=== PATIENT | male | born 1945 | race Caucasian/White ===

== ENCOUNTER 2017-01-21 00:02 | Emergency (ER) | payer OTHER ==
[~2017-01-21 00:02] MED LIST: ASPIRIN ADULT L81 M1 PO; MAXZIDE-25 PO; METOPROLOL SUCC25 MG PO; MULTIVITAMIN1 TAB PO
--- NOTE | 2017-01-21 02:51 | ED NURSING NOTES ---
Clinical Report - Nurses [address] [address] [place] [address] 01/21/2017 0:02 [id number] Triage time 00:48 Jan 21 2017. Chief Complaint: DIZZINESS and (pt reports laying in bed with sudden onset of "dizziness" about 2100). Alert. No acute distress. SEPSIS SCREEN: Sepsis Screen: negative. Negative (no infection suspected/documented). PARAMJIT COMA SCORE: [place] Coma Scale: 15- eyes open spontaneously (4); best verbal response- oriented x 4 (5); best motor response- obeys commands (6). --00:57 Amrit Wang R.N. 00:48 01/21/17. BP: 135/84. HR: 84. RR: 18. O2 saturation: 98%. Temp: 98.3 F. Pain level now: 0/10. --00:57 Amrit Wang R.N. Weight: 122.4 kg stated. Height/Length: 74 inches Per Patient. BMI: 34.7. --00:51 Amrit Wang R.N. Medications Aspirin Oral (Tablet 81 mg) 1 tablet, daily. --00:52 Amrit Wang R.N. Metoprolol Succinate ER Oral 25 mg, daily (take one tablet daily). --00:52 Amrit Wang R.N. Triamterene-HCTZ Oral (Tablet 37.5-25 mg) 1 tablet, daily. --00:53 Amrit Wang R.N. Allergies Ciprofloxacin. --00:53 Amrit Wang R.N. Sulfamethoxazole. --00:53 Amrit Wang R.N. Medication/allergy information source: the patient. --00:57 Amrit Wang R.N. History Arrived by private vehicle. Historian: patient. This is a new problem and onset was abrupt. (2100 this evening). Treatment CERTIFIED REGISTERED DENTAL ASSISTANT: None. PAST MEDICAL HX: Immunizations: up-to-date. SOCIAL HX: Never smoker. Alcohol use; consumes beer occasionally. No infectious disease exposure. ABUSE ASSESSMENT: No report of abuse. SELF HARM ASSESSMENT: A self harm assessment was performed. The patient answered "no" to the question "Have you recently felt down, depressed, or hopeless?", "Have you noticed less interest or pleasure in doing things?", "Do you have thoughts of harming or killing yourself?", "Are you here because you tried to hurt yourself?", "Have you ever tried to hurt yourself before today?", "Have you recently had thoughts about harming or killing others?" and "Do you have any dangerous items in your possession?". FALL RISK ASSESSMENT: Fall risk assessment completed. No fall risk identified. NUTRITIONAL RISK ASSESSMENT: The nutritional risk assessment revealed no deficiencies. LEARNING NEEDS ASSESSMENT: The learning needs assessment revealed no barriers. FUNCTIONAL ASSESSMENT: Functional assessment performed: hard of hearing in both ears and uses a hearing aid in both ears- this hearing impairment is an ongoing problem. SKIN INTEGRITY ASSESSMENT: Skin integrity risk assessment completed. No skin integrity risk identified. --00:57 Amrit Wang R.N. PROBLEMS: Colon Cancer. Chest Pain. Unstable Angina. Contusion. Allergic Reaction. Hypertension. Anemia. Enlarged colon. --00:54 Amrit Wang R.N. ADDITIONAL SURGERIES: Cholecystectomy. Hernia Repair. --00:54 Amrit Wang RPascualN. Interventions ID and allergy band on patient. --00:57 Amrit Wang RPascualN. PHYSICAL ASSESSMENT Ambulatory to room. Patient gowned. GENERAL / NEURO / PSYCH: Oriented X 4. Alert. Speech within normal limits. HEENT: Pupils equal, round and reactive to light. RESPIRATORY: Breath sounds within normal limits. Respirations not labored. CVS: Capillary refill less than 2 seconds. GI / : Abdomen soft and nontender. SKIN: Skin is warm and dry. --00:58 Amrit Wang R.N. NURSING PROGRESS NOTES nurse monitoring, pulse oximeter and NIBP monitor placed on patient; compliance monitor- Lead II and V5; monitor alarms on. Patient gowned. Head of bed elevated. Reassurance given. Two patient identifiers checked. Call light placed in reach. Side rails up x 1. Bed placed in lowest position. Brakes of bed on. --00:59 Amrit Wang R.N. 00:59 01/21/2017 Site #1 started via IV in the right wrist with an 20g angiocath; one attempt. Blood drawn: rainbow set. Labeled in the presence of the patient and sent to the lab. Saline lock flushed with 10 mL saline (placed by Damien BEE). --00:59 Amrit Wang R.N. 00:49. EKG was performed by a tech and shown to the ED physician. --01:00 Sahra Lange ER Tech1 01:11 01/21/2017 Started bag #1 500 mL IV Fluids IV NS (Saline); at 500 mL/hr via site #1 via IV pump. Allergies verified and confirmed 5 rights. IV patency established. IV site checked: no pain, redness, or swelling. IV flushed thoroughly pre- and post-medication administration. --01:11 Amrit Wang R.N. 01:39 01/21/2017 Meclizine PO Tablets 50 mg given. Allergies verified, confirmed 5 rights and sedative warning given to the patient. --01:39 Damien Reza R.N. 01:39 01/21/2017 Zofran ODT (Ondansetron) PO Oral Disintegrating Tablets 4 mg given. Allergies verified and confirmed 5 rights. --01:39 Damien Reza R.N. 01:39 01/21/17. BP: 126/69 (regular adult cuff) taken on the left arm, via an automated monitor, while lying. HR: 92 (irregular and normal rate). RR: 20 (regular, unlabored and normal). O2 saturation: 96% on room air. --01:39 Damien Reza R.N. The patient is calm and resting quietly. GENERAL / NEURO / PSYCH: Patient is calm and cooperative. Affect appears normal. Alert. Oriented X 4. RESPIRATORY: No respiratory distress. SKIN: Skin is warm and dry. --01:39 Damien Reza R.N. 02:15 01/21/2017 IV Fluids IV NS via IV site #1 Rate Changed: bag #1 decreased to 250 mL/hr via IV pump. IV patency established. IV site checked: no pain, redness, or swelling. IV flushed thoroughly. Confirmed 5 Rights. --02:15 Shania Wheeler 02:20 01/21/17. BP: 126/73 (regular adult cuff) taken on the left arm, via an automated monitor, while lying. HR: 71 (irregular and normal rate). RR: 16 (regular, unlabored and normal). O2 saturation: 100% on room air. --02:20 Damien Reza R.N. Cardiac rhythm: sinus arrhythmia; PVCs- bigeminy. --02:20 Damien Reza R.N. 02:59 01/21/2017 IV Fluids IV NS Discontinued: bag #1 discontinued upon discharge. Total amount infused: 700 mL. IV patency established. IV site checked: no pain, redness, or swelling. IV flushed thoroughly. --02:59 Damien Reza R.N. 02:59 01/21/2017 Meclizine PO Response: no adverse reaction symptoms have improved the patient feels better. --02:59 Damien Reza R.N. 02:59 01/21/2017 Zofran ODT PO Response: no adverse reaction symptoms have improved the patient feels better. --02:59 Damien Reza R.N. DISPOSITION / DISCHARGE Departure time: :59. Condition at departure: stable. The goals identified in the patient's plan of care were met. No learning barriers present. Discharge instructions provided and reviewed with the patient. Reviewed medication(s) side effects, precautions, dosing and course information. Prescription(s) given to the patient. Patient verbalized understanding. Written instructions provided in [place]. ( Drew verbalizes understanding of all d/c instructions including need to f/u with PCP. He has no questions and voices no concerns at this time.). The patient was discharged by the physician. He was discharged home and unaccompanied at time of discharge. He left the Emergency Department ambulatory and via private vehicle. Patient driving. PARAMJIT COMA SCORE: Paramjit Coma Scale: 15- eyes open spontaneously (4); best verbal response- oriented x 4 (5); best motor response- obeys commands (6). --02:59 Damien Reza R.N. 02:57 01/21/17. BP: 126/74 (regular adult cuff) taken on the left arm, via an automated monitor, while lying. HR: 70 (irregular and normal rate). RR: 18 (regular, unlabored and normal). O2 saturation: 100% on room air. Temp: 98.3 F (oral). Pain level now: 0/10. --02:59 Damien Reza R.N. Locked/Released at 01/21/2017 3:00 by Damien Reza R.N.
--- NOTE | 2017-01-21 02:51 | ED NURSING NOTES ---
Clinical Report - Nurses [place] [address] [place] [address] 01/21/2017 0:02 [id number] Triage time 00:48 Jan 21 2017. Chief Complaint: DIZZINESS and (pt reports laying in bed with sudden onset of "dizziness" about 2100). Alert. No acute distress. SEPSIS SCREEN: Sepsis Screen: negative. Negative (no infection suspected/documented). PARAMJIT COMA SCORE: [place] Coma Scale: 15- eyes open spontaneously (4); best verbal response- oriented x 4 (5); best motor response- obeys commands (6). --00:57 Amrit Wang R.N. 00:48 01/21/17. BP: 135/84. HR: 84. RR: 18. O2 saturation: 98%. Temp: 98.3 F. Pain level now: 0/10. --00:57 Amrit Wang R.N. Weight: 122.4 kg stated. Height/Length: 74 inches Per Patient. BMI: 34.7. --00:51 Amrit Wang R.N. Medications Aspirin Oral (Tablet 81 mg) 1 tablet, daily. --00:52 Amrit Wang R.N. Metoprolol Succinate ER Oral 25 mg, daily (take one tablet daily). --00:52 Amrit Wang R.N. Triamterene-HCTZ Oral (Tablet 37.5-25 mg) 1 tablet, daily. --00:53 Amrit Wang R.N. Allergies Ciprofloxacin. --00:53 Amrit Wang R.N. Sulfamethoxazole. --00:53 Amrit Wang R.N. Medication/allergy information source: the patient. --00:57 Amrit Wang R.N. History Arrived by private vehicle. Historian: patient. This is a new problem and onset was abrupt. (2100 this evening). Treatment MEASUREMENT TECHNICIAN: None. PAST MEDICAL HX: Immunizations: up-to-date. SOCIAL HX: Never smoker. Alcohol use; consumes beer occasionally. No infectious disease exposure. ABUSE ASSESSMENT: No report of abuse. SELF HARM ASSESSMENT: A self harm assessment was performed. The patient answered "no" to the question "Have you recently felt down, depressed, or hopeless?", "Have you noticed less interest or pleasure in doing things?", "Do you have thoughts of harming or killing yourself?", "Are you here because you tried to hurt yourself?", "Have you ever tried to hurt yourself before today?", "Have you recently had thoughts about harming or killing others?" and "Do you have any dangerous items in your possession?". FALL RISK ASSESSMENT: Fall risk assessment completed. No fall risk identified. NUTRITIONAL RISK ASSESSMENT: The nutritional risk assessment revealed no deficiencies. LEARNING NEEDS ASSESSMENT: The learning needs assessment revealed no barriers. FUNCTIONAL ASSESSMENT: Functional assessment performed: hard of hearing in both ears and uses a hearing aid in both ears- this hearing impairment is an ongoing problem. SKIN INTEGRITY ASSESSMENT: Skin integrity risk assessment completed. No skin integrity risk identified. --00:57 Amrit Wang R.N. PROBLEMS: Colon Cancer. Chest Pain. Unstable Angina. Contusion. Allergic Reaction. Hypertension. Anemia. Enlarged colon. --00:54 Amrit Wang R.N. ADDITIONAL SURGERIES: Cholecystectomy. Hernia Repair. --00:54 Amrit Wang RPascualN. Interventions ID and allergy band on patient. --00:57 Amrit Wang RPascualN. PHYSICAL ASSESSMENT Ambulatory to room. Patient gowned. GENERAL / NEURO / PSYCH: Oriented X 4. Alert. Speech within normal limits. HEENT: Pupils equal, round and reactive to light. RESPIRATORY: Breath sounds within normal limits. Respirations not labored. CVS: Capillary refill less than 2 seconds. GI / : Abdomen soft and nontender. SKIN: Skin is warm and dry. --00:58 Amrit Wang R.N. NURSING PROGRESS NOTES eyelet row marker, pulse oximeter and NIBP monitor placed on patient; boring machine operator horizontal- Lead II and V5; monitor alarms on. Patient gowned. Head of bed elevated. Reassurance given. Two patient identifiers checked. Call light placed in reach. Side rails up x 1. Bed placed in lowest position. Brakes of bed on. --00:59 Amrit Wang R.N. 00:59 01/21/2017 Site #1 started via IV in the right wrist with an 20g angiocath; one attempt. Blood drawn: rainbow set. Labeled in the presence of the patient and sent to the lab. Saline lock flushed with 10 mL saline (placed by Damien BEE). --00:59 Amrit Wang R.N. 00:49. EKG was performed by a tech and shown to the ED physician. --01:00 Sahra Lange ER Tech1 01:11 01/21/2017 Started bag #1 500 mL IV Fluids IV NS (Saline); at 500 mL/hr via site #1 via IV pump. Allergies verified and confirmed 5 rights. IV patency established. IV site checked: no pain, redness, or swelling. IV flushed thoroughly pre- and post-medication administration. --01:11 Amrit Wang R.N. 01:39 01/21/2017 Meclizine PO Tablets 50 mg given. Allergies verified, confirmed 5 rights and sedative warning given to the patient. --01:39 Damien Reza R.N. 01:39 01/21/2017 Zofran ODT (Ondansetron) PO Oral Disintegrating Tablets 4 mg given. Allergies verified and confirmed 5 rights. --01:39 Damien Reza R.N. 01:39 01/21/17. BP: 126/69 (regular adult cuff) taken on the left arm, via an automated monitor, while lying. HR: 92 (irregular and normal rate). RR: 20 (regular, unlabored and normal). O2 saturation: 96% on room air. --01:39 Damien Reza R.N. The patient is calm and resting quietly. GENERAL / NEURO / PSYCH: Patient is calm and cooperative. Affect appears normal. Alert. Oriented X 4. RESPIRATORY: No respiratory distress. SKIN: Skin is warm and dry. --01:39 Damien Reza R.N. 02:15 01/21/2017 IV Fluids IV NS via IV site #1 Rate Changed: bag #1 decreased to 250 mL/hr via IV pump. IV patency established. IV site checked: no pain, redness, or swelling. IV flushed thoroughly. Confirmed 5 Rights. --02:15 Shania Wheeler 02:20 01/21/17. BP: 126/73 (regular adult cuff) taken on the left arm, via an automated monitor, while lying. HR: 71 (irregular and normal rate). RR: 16 (regular, unlabored and normal). O2 saturation: 100% on room air. --02:20 Damien Reza R.N. Cardiac rhythm: sinus arrhythmia; PVCs- bigeminy. --02:20 Damien Reza R.N. 02:59 01/21/2017 IV Fluids IV NS Discontinued: bag #1 discontinued upon discharge. Total amount infused: 700 mL. IV patency established. IV site checked: no pain, redness, or swelling. IV flushed thoroughly. --02:59 Damien Reza R.N. 02:59 01/21/2017 Meclizine PO Response: no adverse reaction symptoms have improved the patient feels better. --02:59 Damien Reza R.N. 02:59 01/21/2017 Zofran ODT PO Response: no adverse reaction symptoms have improved the patient feels better. --02:59 Damien Reza R.N. DISPOSITION / DISCHARGE Departure time: :59. Condition at departure: stable. The goals identified in the patient's plan of care were met. No learning barriers present. Discharge instructions provided and reviewed with the patient. Reviewed medication(s) side effects, precautions, dosing and course information. Prescription(s) given to the patient. Patient verbalized understanding. Written instructions provided in [place]. ( Drew verbalizes understanding of all d/c instructions including need to f/u with PCP. He has no questions and voices no concerns at this time.). The patient was discharged by the physician. He was discharged home and unaccompanied at time of discharge. He left the Emergency Department ambulatory and via private vehicle. Patient driving. PARAMJIT COMA SCORE: Paramjit Coma Scale: 15- eyes open spontaneously (4); best verbal response- oriented x 4 (5); best motor response- obeys commands (6). --02:59 Damien Reza R.N. 02:57 01/21/17. BP: 126/74 (regular adult cuff) taken on the left arm, via an automated monitor, while lying. HR: 70 (irregular and normal rate). RR: 18 (regular, unlabored and normal). O2 saturation: 100% on room air. Temp: 98.3 F (oral). Pain level now: 0/10. --02:59 Damien Reza R.N. Locked/Released at 01/21/2017 3:00 by Damien Reza R.N.
--- NOTE | 2017-01-21 02:51 | ED CLINICAL REPORT ---
Clinical Report - Physicians/Mid Levels [facility] [address] [place] [address] 01/21/2017 0:02 Patient: DREW NEVILLE Time Seen: 00:51. Arrived- By private vehicle. Historian- patient. HISTORY OF PRESENT ILLNESS Chief Complaint: DIZZINESS. Severity described as moderate at its maximum. When seen in the E.D., it was almost gone. Modifying factors- worsened by turning head and changing position. Relieved by not moving and quiet room. This started today and is still present. It was gradual in onset and has been waxing/waning. Described as a sense of rotation and movement and feeling off balance. Not described as feeling light-headed, faint or weak all over or a sense of confusion. The patient has had hearing loss. No nausea, vomiting, tinnitus or ear pain. Similar symptoms previously: Milder. Recent medical care: Not recently seen/assessed. REVIEW OF SYSTEMS No headache, double vision, weakness, fainting episodes or head injury. No chest pain, palpitations, black stools, abnormal vaginal bleeding or numbness. No bloody stools, fever, sore throat, cough or difficulty breathing. No abdominal pain, diarrhea, difficulty with urination or skin rash. No difficulty walking. The patient has had nasal congestion and a runny nose. States that he is "just getting over a cold" - with runny nose and congestion. All systems otherwise negative, except as recorded above. PAST HISTORY ( Rib Fracture. Fall. Frequent PVC's - has had cardiology w/u for this Contusion. Allergic Reaction. Hypertension. Anemia. "Enlarged colon" - felt to be "colon cancer" Chronic hearing loss Surgeries: Cholecystectomy. Hernia Repai). SOCIAL HISTORY Never smoker. Occasional alcohol use. No drug use. Is a local resident. ADDITIONAL NOTES The nursing notes have been reviewed. PHYSICAL EXAM Vital Signs: 01/21/2017 00:48 BP: 135/84. HR: 84. RR: 18. O2 saturation: 98%. Temp: 98.3 F. Pain level now: 0/10. Appearance: Alert. Anxious. Patient in mild distress. Odor of alcohol is not present. Speech is not slurred. Eyes: Pupils equal, round and reactive to light. No nystagmus. Extraocular movements normal. ENT: Normal ENT inspection. TM's normal. Moist mucous membranes. Pharynx normal. Neck: Normal inspection. Neck supple. No carotid bruit. CVS: Normal heart rate and rhythm. Heart sounds normal. Pulses normal. Respiratory: No respiratory distress. Breath sounds normal. Abdomen: Soft and nontender. No organomegaly. Back: Normal inspection. Skin: Skin warm and dry. Normal skin color. No rash. Normal skin turgor. Extremities: Extremities exhibit normal ROM. No lower extremity edema. Neuro: Alert. Oriented X 3. Mood/affect normal. Speech normal. Cranial nerves normal (as tested). No cerebellar findings. No motor deficit. No sensory deficit. Reflexes normal. (Neg [place]). LABS, X-RAYS, AND EKG EKG: EKG time: (00:49). Normal sinus rhythm. Rate: 95. Frequent unifocal ectopic beats (bigeminey). Normal P waves. Normal VERITO. Wide QRS- intraventricular conduction delay. Non-specific ST segment / T wave abnormalities. The study has been interpreted contemporaneously by me. The EKG appears to be a good tracing. Rhythm Strip #1: Normal sinus rhythm. Regular rhythm. Narrow QRS complexes. Frequent unifocal premature ventricular contractions (bigeminey). Non-specific ST segment / T-wave abnormalities. Laboratory Tests: UA-Culture if indicated: (RENZO: 01/21/2017 02:25) ( MsgRcvd 01/21/2017 02:45) Final results Test Result Flag Units (Reference) URINE COLOR YELLOW URINE APPEARANCE CLEAR URINE GLUCOSE NEGATIVE (NEGATIVE) URINE BILIRUBIN NEGATIVE (NEGATIVE) URINE KETONE NEGATIVE (NEGATIVE) URINE SPECIFIC GRAVITY 1.010 (1.010-1.030) URINE PH 5.5 (5.0-8.0) URINE PROTEIN NEGATIVE (NEGATIVE) URINE UROBILINOGEN 0.2 EU/dL (0.2-1.0) URINE NITRITE NEGATIVE (NEGATIVE) URINE BLOOD NEGATIVE (NEGATIVE) URINE LEUK ESTERASE NEGATIVE (NEGATIVE) URINE RBC RARE rbc/hpf (0-1) URINE WBC NONE SEEN wbc/hpf (0-1) URINE EPITHELIAL CELLS NONE SEEN EPI/hpf (0-5) URINE BACTERIA NONE SEEN (NONE SEEN) URINE COMMENT CULT NOT INDICATED URINE CULTURES ARE SET-UP BASED ON THE FOLLOWING CRITERIA:POSITIVE NITRITEPOSITIVE LEUKOCYTE ESTERASEGREATER THAN 10 WHITE BLOOD CELLSMODERATE (2+) OR GREATER BACTERIA CBC w Diff: (RENZO: 01/21/2017 01:00) ( KsgRcvd 01/21/2017 01:28) Final results Test Result Flag Units (Reference) WHITE BLOOD COUNT 6.9 K/uL (4.5-11.5) RED BLOOD COUNT 4.52 M/uL (4.50-5.90) HEMOGLOBIN 13.0 L gm/dL (13.5-17.5) HEMATOCRIT 38.5 L % (41.0-53.0) MEAN CELL VOLUME 85 fL (80-100) MEAN CORPUSCULAR HGB 29 pg (26-34) MEAN CORPUSCULAR HGB CONC 34 g/dL (31-37) RED CELL DISTRIBUTION WIDTH 13.8 % (11.6-14.8) PLATELET COUNT 172 K/uL (150-400) NEUTROPHIL % 54.0 % (50-75) LYMPH % 30.8 % (25-40) MONO % 8.8 % (3-14) EOSINOPHIL % 5.8 H % (0-4) BASOPHIL % 0.6 % (0-2) PT with INR: (RENZO: 01/21/2017 01:00) ( MsgRcvd 01/21/2017 01:28) Final results Test Result Flag Units (Reference) INR 1.0 (0.8-1.2) Low Intensity Therapy: INR 1.5-2.0 PT range 18.5-23.1Mod.Intensity Therapy: INR 2.0-3.0 PT range 23.1-31.5High Intensity Therapy: INR 2.5-3.5 PT range 27.4-35.5High Intensity Therapy 2: INR 3.0-4.0 PT range 31.5-39.3 D-DIMER QUANTITATIVE 0.63 H ug/mLFEU (0.27-0.52) The primary value of this quantitative assay relates toits negative predictive value (i.e. exclusion) of pulmonaryembolism/deep vein thrombosis/DIC.Elevated levels of d-dimer may also occur with:, age, cancer, inflammation, liver disease,post-op, infection, hematoma, coronary disease, peripheralarteriopathy, bleeding disorders and thrombolytic treatment.Results should be correlated with other clinical andradiological data.Testing Methodology: Latex Immunoassay BNP: (RENZO: 01/21/2017 01:00) ( [facility] 01/21/2017 02:04) Final results Test Result Flag Units (Reference) B-TYPE NATRIURETIC PEPTIDE 99.3 pg/ml (5-100) Amylase: (RENZO: 01/21/2017 01:00) ( [facility] 01/21/2017 01:54) Final results Test Result Flag Units (Reference) AMYLASE 43 U/L (25-115) THYROID STIMULATING HORMONE 4.687 H uIU/mL (0.30-3.74) CHEM 13 PANEL: (RENZO: 01/21/2017 01:00) ( [facility] 01/21/2017 01:53) Final results Test Result Flag Units (Reference) GLUCOSE 115 H mg/dL (70-110) BUN 23 H mg/dL (7-18) CREATININE 1.0 mg/dL (0.6-1.3) Estimated GFR >60 mL/min Estimated GFR- >60 mL/min Note: Persistent reduction over 3 months in eGFR<60 mL/min/1.73 m2 defines CKD. Patients with eGFR values>=60 mL/min/1.73 m2 may also have CKD if evidence ofpersistent proteinuria. Additional information may be foundat www.kidney.org. SODIUM 144 mmol/L (136-145) POTASSIUM 4.1 mmol/L (3.5-5.1) CHLORIDE 107 mmol/L (98-107) CARBON DIOXIDE 25 mmol/L (21-32) CALCIUM 8.9 mg/dL (8.5-10.1) TOTAL PROTEIN 7.6 g/dL (6.4-8.2) ALBUMIN 3.5 g/dL (3.3-5.0) BILIRUBIN, TOTAL 0.4 mg/dL (0.0-1.0) ALKALINE PHOSPHATASE 92 U/L (46-116) AST (SGOT) 29 U/L (15-37) ALT (SGPT) 29 U/L (12-78) CPK 235 U/L (24-260) MAGNESIUM 2.0 mg/dL (1.8-2.4) TROPONIN I <0.05 ng/mL (0.00-1.5) TROPONIN REFERENCE RANGE:<0.1 NEGATIVE0.1-1.5 INDETERMINANT>1.5 POSITIVE . Pulse Oximetry: 01/21/2017 00:48 O2 saturation: 98%. (FIO2 - room air). Interpretation: normal. PROGRESS AND PROCEDURES Course of Care: Normal Saline 1 liter IVPB given. Meclizine 50 mg PO given. Most c/w peripheral vertigo secondary to viral URI. Chronic frequent PVC's Patient is stable. The patient's symptoms are now gone. Physical exam findings are improved. Patient/family counseled. Old ED records reviewed. Disposition: Discharged. Condition: stable and improved. CLINICAL IMPRESSION Acute vertigo of peripheral origin: labrynthitis. Acute viral rhinitis. Acquired hypothyroidism. Frequent PVC's with bigeminy. INSTRUCTIONS Drink plenty of fluids. Warnings: Further evaluation is necessary in order to recheck abnormal lab, obtain test results, conduct further tests and assess the possibility of serious illness. It is very important to follow up with a physician. SEDATIVE MEDICATION: You were given sedative medication during your visit. Do not drive or operate dangerous machinery. GENERAL WARNINGS: Return or contact your physician immediately if your condition worsens or changes unexpectedly, if not improving as expected, or if other problems arise. Prescription Medications: Antivert 25mg: Take 1 tablet orally every 8 hours as needed for dizziness. Dispense thirty (30). No refills. Substitution is permissible. Follow-up with: Mk Faria MD, [facility], , [address] [facility], , [place], [id number] Follow up tomorrow. (Electronically signed by Az Bentley DO 01/21/2017 10:46)
--- NOTE | 2017-01-21 02:51 | ED ORDER SUMMARY ---
..... Patient: DREW NEVILLE OrderSheet [facility] VisitID: [id number] [address] [place] [address] 71y, M Registration Date/Time: 01/21/2017 ORDER SHEET Weight: 122.4 kg (stated) Allergies: Ciprofloxacin, Sulfamethoxazole GENERAL ORDERS: Chest 2V (dizzy) Urgent (00:54 01/21/2017 PHutchinson DO) (Ack 0:58 AMcQuoid ER Tech1) (1:11 RFay) Tax Accountant (Continuous) (00:54 01/21/2017 PHutchinson DO) (0:55 AMcQuoid ER Tech1) UA-Culture if indicated Urgent (00:54 01/21/2017 PHutchinson DO) (Ack 0:58 AMcQuoid ER Tech1) (2:51 JDeElena R.N.) Cardiac Panel Stat (00:54 01/21/2017 PHutchinson DO) (Ack 0:58 AMcQuoid ER Tech1) (1:00 JDeElena R.N.) BNP Urgent (00:54 01/21/2017 PHutchinson DO) (Ack 0:58 AMcQuoid ER Tech1) (1:00 JDeElena R.N.) D-Dimer Urgent (00:54 01/21/2017 PHutchinson DO) (Ack 0:58 AMcQuoid ER Tech1) (1:00 JDeElena R.N.) Amylase Urgent (00:54 01/21/2017 PHutchinson DO) (Ack 0:58 AMcQuoid ER Tech1) (1:00 JDeElena R.N.) PT with INR Urgent (00:54 01/21/2017 PHutchinson DO) (Ack 0:58 AMcQuoid ER Tech1) (1:00 JDeElena R.N.) TSH Urgent (00:54 01/21/2017 PHutchinson DO) (Ack 0:58 AMcQuoid ER Tech1) (1:00 JDeElena R.N.) Pulse oximeter (00:54 01/21/2017 PHutchinson DO) (0:55 AMcQuoid ER Tech1) EKG - ER Stat (00:54 01/21/2017 [facility]) (0:55 AMcQuoid ER Tech1) Vitals (00:54 01/21/2017 [facility]) (0:55 AMcQuoid ER Tech1) MEDICATION ORDERS: Meclizine PO 50 mg (NOW) (01:28 01/21/2017 [facility]) (Ack 1:35 JDeElenissac R.N.) (1:39 JDeElena R.N.) Zofran ODT PO 4 mg (NOW) (01:01/21/2017 [facility]) (Ack 1:35 JDeElena R.N.) (1:39 JDeElena R.N.) IV FLUIDS: IV NS : initial bolus 500 mL (1000 mL/hr), then 250 mL/hr for X2 (NOW) (00:54 01/21/2017 [facility]) (Ack 1:04 KPage-Peteychan R.N.) (1:11 KPage-Kuchan R.N.) ORDER SHEET NOTES: [Electronically signed by Damien Reza R.N. (03:00 01/21/2017)] [Electronically signed by Az Bentley DO (10:46 01/21/2017)] [Electronically locked/signed by Damien Reza R.N. (03:00 01/21/2017)]
--- NOTE | 2017-01-21 02:51 | ED ORDER SUMMARY ---
..... Patient: DREW NEVILLE OrderSheet [facility] VisitID: [id number] [address] [place] [address] 71y, M Registration Date/Time: 01/21/2017 ORDER SHEET Weight: 122.4 kg (stated) Allergies: Ciprofloxacin, Sulfamethoxazole GENERAL ORDERS: Chest 2V (dizzy) Urgent (00:54 01/21/2017 PHutchinson DO) (Ack 0:58 AMcQuoid ER Tech1) (1:11 RFay) Ballast Cleaning Machine Operator (Continuous) (00:54 01/21/2017 PHutchinson DO) (0:55 AMcQuoid ER Tech1) UA-Culture if indicated Urgent (00:54 01/21/2017 PHutchinson DO) (Ack 0:58 AMcQuoid ER Tech1) (2:51 JDeElena R.N.) Cardiac Panel Stat (00:54 01/21/2017 PHutchinson DO) (Ack 0:58 AMcQuoid ER Tech1) (1:00 JDeElena R.N.) BNP Urgent (00:54 01/21/2017 PHutchinson DO) (Ack 0:58 AMcQuoid ER Tech1) (1:00 JDeElena R.N.) D-Dimer Urgent (00:54 01/21/2017 PHutchinson DO) (Ack 0:58 AMcQuoid ER Tech1) (1:00 JDeElena R.N.) Amylase Urgent (00:54 01/21/2017 PHutchinson DO) (Ack 0:58 AMcQuoid ER Tech1) (1:00 JDeElena R.N.) PT with INR Urgent (00:54 01/21/2017 PHutchinson DO) (Ack 0:58 AMcQuoid ER Tech1) (1:00 JDeElena R.N.) TSH Urgent (00:54 01/21/2017 PHutchinson DO) (Ack 0:58 AMcQuoid ER Tech1) (1:00 JDeElena R.N.) Pulse oximeter (00:54 01/21/2017 PHutchinson DO) (0:55 AMcQuoid ER Tech1) EKG - ER Stat (00:54 01/21/2017 [facility]) (0:55 AMcQuoid ER Tech1) Vitals (00:54 01/21/2017 [facility]) (0:55 AMcQuoid ER Tech1) MEDICATION ORDERS: Meclizine PO 50 mg (NOW) (01:28 01/21/2017 [facility]) (Ack 1:35 JDeElenissac R.N.) (1:39 JDeElena R.N.) Zofran ODT PO 4 mg (NOW) (01:01/21/2017 [facility]) (Ack 1:35 JDeElena R.N.) (1:39 JDeElena R.N.) IV FLUIDS: IV NS : initial bolus 500 mL (1000 mL/hr), then 250 mL/hr for X2 (NOW) (00:54 01/21/2017 [facility]) (Ack 1:04 KPage-Peteychan R.N.) (1:11 KPage-Kuchan R.N.) ORDER SHEET NOTES: [Electronically signed by Damien Reza R.N. (03:00 01/21/2017)] [Electronically signed by Az Bentley DO (10:46 01/21/2017)] [Electronically locked/signed by Damien Reza R.N. (03:00 01/21/2017)]
--- NOTE | 2017-01-21 02:51 | ED CLINICAL REPORT ---
Clinical Report - Physicians/Mid Levels [facility] [address] [place] [address] 01/21/2017 0:02 Patient: DREW NEVILLE Time Seen: 00:51. Arrived- By private vehicle. Historian- patient. HISTORY OF PRESENT ILLNESS Chief Complaint: DIZZINESS. Severity described as moderate at its maximum. When seen in the E.D., it was almost gone. Modifying factors- worsened by turning head and changing position. Relieved by not moving and quiet room. This started today and is still present. It was gradual in onset and has been waxing/waning. Described as a sense of rotation and movement and feeling off balance. Not described as feeling light-headed, faint or weak all over or a sense of confusion. The patient has had hearing loss. No nausea, vomiting, tinnitus or ear pain. Similar symptoms previously: Milder. Recent medical care: Not recently seen/assessed. REVIEW OF SYSTEMS No headache, double vision, weakness, fainting episodes or head injury. No chest pain, palpitations, black stools, abnormal vaginal bleeding or numbness. No bloody stools, fever, sore throat, cough or difficulty breathing. No abdominal pain, diarrhea, difficulty with urination or skin rash. No difficulty walking. The patient has had nasal congestion and a runny nose. States that he is "just getting over a cold" - with runny nose and congestion. All systems otherwise negative, except as recorded above. PAST HISTORY ( Rib Fracture. Fall. Frequent PVC's - has had cardiology w/u for this Contusion. Allergic Reaction. Hypertension. Anemia. "Enlarged colon" - felt to be "colon cancer" Chronic hearing loss Surgeries: Cholecystectomy. Hernia Repai). SOCIAL HISTORY Never smoker. Occasional alcohol use. No drug use. Is a local resident. ADDITIONAL NOTES The nursing notes have been reviewed. PHYSICAL EXAM Vital Signs: 01/21/2017 00:48 BP: 135/84. HR: 84. RR: 18. O2 saturation: 98%. Temp: 98.3 F. Pain level now: 0/10. Appearance: Alert. Anxious. Patient in mild distress. Odor of alcohol is not present. Speech is not slurred. Eyes: Pupils equal, round and reactive to light. No nystagmus. Extraocular movements normal. ENT: Normal ENT inspection. TM's normal. Moist mucous membranes. Pharynx normal. Neck: Normal inspection. Neck supple. No carotid bruit. CVS: Normal heart rate and rhythm. Heart sounds normal. Pulses normal. Respiratory: No respiratory distress. Breath sounds normal. Abdomen: Soft and nontender. No organomegaly. Back: Normal inspection. Skin: Skin warm and dry. Normal skin color. No rash. Normal skin turgor. Extremities: Extremities exhibit normal ROM. No lower extremity edema. Neuro: Alert. Oriented X 3. Mood/affect normal. Speech normal. Cranial nerves normal (as tested). No cerebellar findings. No motor deficit. No sensory deficit. Reflexes normal. (Neg Nylan-Barany). LABS, X-RAYS, AND EKG EKG: EKG time: (00:49). Normal sinus rhythm. Rate: 95. Frequent unifocal ectopic beats (bigeminey). Normal P waves. Normal VERITO. Wide QRS- intraventricular conduction delay. Non-specific ST segment / T wave abnormalities. The study has been interpreted contemporaneously by me. The EKG appears to be a good tracing. Rhythm Strip #1: Normal sinus rhythm. Regular rhythm. Narrow QRS complexes. Frequent unifocal premature ventricular contractions (bigeminey). Non-specific ST segment / T-wave abnormalities. Laboratory Tests: UA-Culture if indicated: (RENZO: 01/21/2017 02:25) ( MsgRcvd 01/21/2017 02:45) Final results Test Result Flag Units (Reference) URINE COLOR YELLOW URINE APPEARANCE CLEAR URINE GLUCOSE NEGATIVE (NEGATIVE) URINE BILIRUBIN NEGATIVE (NEGATIVE) URINE KETONE NEGATIVE (NEGATIVE) URINE SPECIFIC GRAVITY 1.010 (1.010-1.030) URINE PH 5.5 (5.0-8.0) URINE PROTEIN NEGATIVE (NEGATIVE) URINE UROBILINOGEN 0.2 EU/dL (0.2-1.0) URINE NITRITE NEGATIVE (NEGATIVE) URINE BLOOD NEGATIVE (NEGATIVE) URINE LEUK ESTERASE NEGATIVE (NEGATIVE) URINE RBC RARE rbc/hpf (0-1) URINE WBC NONE SEEN wbc/hpf (0-1) URINE EPITHELIAL CELLS NONE SEEN EPI/hpf (0-5) URINE BACTERIA NONE SEEN (NONE SEEN) URINE COMMENT CULT NOT INDICATED URINE CULTURES ARE SET-UP BASED ON THE FOLLOWING CRITERIA:POSITIVE NITRITEPOSITIVE LEUKOCYTE ESTERASEGREATER THAN 10 WHITE BLOOD CELLSMODERATE (2+) OR GREATER BACTERIA CBC w Diff: (RENZO: 01/21/2017 01:00) ( CogRcvd 01/21/2017 01:28) Final results Test Result Flag Units (Reference) WHITE BLOOD COUNT 6.9 K/uL (4.5-11.5) RED BLOOD COUNT 4.52 M/uL (4.50-5.90) HEMOGLOBIN 13.0 L gm/dL (13.5-17.5) HEMATOCRIT 38.5 L % (41.0-53.0) MEAN CELL VOLUME 85 fL (80-100) MEAN CORPUSCULAR HGB 29 pg (26-34) MEAN CORPUSCULAR HGB CONC 34 g/dL (31-37) RED CELL DISTRIBUTION WIDTH 13.8 % (11.6-14.8) PLATELET COUNT 172 K/uL (150-400) NEUTROPHIL % 54.0 % (50-75) LYMPH % 30.8 % (25-40) MONO % 8.8 % (3-14) EOSINOPHIL % 5.8 H % (0-4) BASOPHIL % 0.6 % (0-2) PT with INR: (RENZO: 01/21/2017 01:00) ( MsgRcvd 01/21/2017 01:28) Final results Test Result Flag Units (Reference) INR 1.0 (0.8-1.2) Low Intensity Therapy: INR 1.5-2.0 PT range 18.5-23.1Mod.Intensity Therapy: INR 2.0-3.0 PT range 23.1-31.5High Intensity Therapy: INR 2.5-3.5 PT range 27.4-35.5High Intensity Therapy 2: INR 3.0-4.0 PT range 31.5-39.3 D-DIMER QUANTITATIVE 0.63 H ug/mLFEU (0.27-0.52) The primary value of this quantitative assay relates toits negative predictive value (i.e. exclusion) of pulmonaryembolism/deep vein thrombosis/DIC.Elevated levels of d-dimer may also occur with:, age, cancer, inflammation, liver disease,post-op, infection, hematoma, coronary disease, peripheralarteriopathy, bleeding disorders and thrombolytic treatment.Results should be correlated with other clinical andradiological data.Testing Methodology: Latex Immunoassay BNP: (RENZO: 01/21/2017 01:00) ( [facility] 01/21/2017 02:04) Final results Test Result Flag Units (Reference) B-TYPE NATRIURETIC PEPTIDE 99.3 pg/ml (5-100) Amylase: (RENZO: 01/21/2017 01:00) ( [facility] 01/21/2017 01:54) Final results Test Result Flag Units (Reference) AMYLASE 43 U/L (25-115) THYROID STIMULATING HORMONE 4.687 H uIU/mL (0.30-3.74) CHEM 13 PANEL: (RENZO: 01/21/2017 01:00) ( [facility] 01/21/2017 01:53) Final results Test Result Flag Units (Reference) GLUCOSE 115 H mg/dL (70-110) BUN 23 H mg/dL (7-18) CREATININE 1.0 mg/dL (0.6-1.3) Estimated GFR >60 mL/min Estimated GFR- >60 mL/min Note: Persistent reduction over 3 months in eGFR<60 mL/min/1.73 m2 defines CKD. Patients with eGFR values>=60 mL/min/1.73 m2 may also have CKD if evidence ofpersistent proteinuria. Additional information may be foundat www.kidney.org. SODIUM 144 mmol/L (136-145) POTASSIUM 4.1 mmol/L (3.5-5.1) CHLORIDE 107 mmol/L (98-107) CARBON DIOXIDE 25 mmol/L (21-32) CALCIUM 8.9 mg/dL (8.5-10.1) TOTAL PROTEIN 7.6 g/dL (6.4-8.2) ALBUMIN 3.5 g/dL (3.3-5.0) BILIRUBIN, TOTAL 0.4 mg/dL (0.0-1.0) ALKALINE PHOSPHATASE 92 U/L (46-116) AST (SGOT) 29 U/L (15-37) ALT (SGPT) 29 U/L (12-78) CPK 235 U/L (24-260) MAGNESIUM 2.0 mg/dL (1.8-2.4) TROPONIN I <0.05 ng/mL (0.00-1.5) TROPONIN REFERENCE RANGE:<0.1 NEGATIVE0.1-1.5 INDETERMINANT>1.5 POSITIVE . Pulse Oximetry: 01/21/2017 00:48 O2 saturation: 98%. (FIO2 - room air). Interpretation: normal. PROGRESS AND PROCEDURES Course of Care: Normal Saline 1 liter IVPB given. Meclizine 50 mg PO given. Most c/w peripheral vertigo secondary to viral URI. Chronic frequent PVC's Patient is stable. The patient's symptoms are now gone. Physical exam findings are improved. Patient/family counseled. Old ED records reviewed. Disposition: Discharged. Condition: stable and improved. CLINICAL IMPRESSION Acute vertigo of peripheral origin: labrynthitis. Acute viral rhinitis. Acquired hypothyroidism. Frequent PVC's with bigeminy. INSTRUCTIONS Drink plenty of fluids. Warnings: Further evaluation is necessary in order to recheck abnormal lab, obtain test results, conduct further tests and assess the possibility of serious illness. It is very important to follow up with a physician. SEDATIVE MEDICATION: You were given sedative medication during your visit. Do not drive or operate dangerous machinery. GENERAL WARNINGS: Return or contact your physician immediately if your condition worsens or changes unexpectedly, if not improving as expected, or if other problems arise. Prescription Medications: Antivert 25mg: Take 1 tablet orally every 8 hours as needed for dizziness. Dispense thirty (30). No refills. Substitution is permissible. Follow-up with: Mk Faria MD, [facility], , [address] [facility], , [place], [address] Follow up tomorrow. (Electronically signed by Az Bentley DO 01/21/2017 10:46)
--- NOTE | 2017-01-21 08:29 | DIAGNOSTIC IMAGING REPORT ---
PROCEDURE: XR CHEST 2 VIEW INDICATION: SHORTNESS OF BREATH TECHNIQUE: Two views. COMPARISON: 12/27/2013 FINDINGS: The cardiomediastinal contour is stable, within normal limits. The aorta is tortuous. The central vasculature is not congested. Minor bibasilar atelectatic changes, chronic. The lungs are otherwise clear without focal consolidation, pleural effusion or pneumothorax. The visualized osseous structures are intact. Degenerative changes in the thoracic spine and surgical clips in the gallbladder fossa. IMPRESSION: 1. No evidence of acute cardiopulmonary disease. 2. Stable exam compared to prior study.
--- NOTE | 2017-01-21 10:46 | ED MED RECONCILIATION SUMMARY ---
Patient: DREW NEVILLE Medication Reconciliation Report [facility] VisitID: [id number] [address] [place] [address] 71y, M Registration Date/Time: 01/21/2017 Weight: 122.4 kg Height/Length: 74 in. BMI: 34.7 ALLERGIES: Ciprofloxacin, Sulfamethoxazole The patient's Home Medications are listed below: THE FOLLOWING MEDICATIONS NEED TO BE RECONCILED: Aspirin Oral (81 mg) 1 tablet, daily Metoprolol Succinate ER Oral 25 mg, daily, take one tablet daily Triamterene-HCTZ Oral (37.5-25 mg) 1 tablet, daily The source(s) of the original Home Medication information: patient The following Medications were given to the patient in the Emergency Department: IV NS IV Fluids bolus 0, then 500 mL/hr, administered: 01/21/2017 1:11:00 AM Meclizine [PO] PO 50 mg, administered: 01/21/2017 1:39:00 AM Zofran ODT [PO] PO 4 mg, administered: 01/21/2017 1:39:00 AM The following Medications were prescribed to the patient: Antivert 25mg: Take 1 tablet orally every 8 hours as needed for dizziness. Dispense thirty (30). No refills. Substitution is permissible. -- Az Bentley DO
--- NOTE | 2017-01-21 10:46 | ED MAR SUMMARY ---
..... Medication Administration Record [facility] [address] [place] [address] Patient: DREW NEVILLE Visit ID: [id number] 71y, M Weight: 122.4 kg Height/Length: 74 in BMI: 34.7 ALLERGIES: Sulfamethoxazole, Ciprofloxacin Start 01:11 01/21/2017 Amrit Wang R.N., Stop 02:59 01/21/2017 Damien Reza R.N. Medication Administered: IV NS (SALINE), Dose: IV Fluids, Rate: 500 mL/hr, Dispensed: 500 mL bag, Site: #1 right wrist. Medication Ordered: IV NS : initial bolus 500 mL (1000 mL/hr), then 250 mL/hr for X2 (NOW). Given 01:39 01/21/2017 Damien Reza R.N. Medication Administered: MECLIZINE [PO], Dose: 50 mg Tablets PO. Medication Ordered: Meclizine PO 50 mg (NOW). Given 01:39 01/21/2017 Damien Reza R.NPascual Medication Administered: ZOFRAN ODT [PO] (ONDANSETRON), Dose: 4 mg Oral Disintegrating Tablets PO. Medication Ordered: Zofran ODT PO 4 mg (NOW).
--- NOTE | 2017-01-21 10:46 | ED MED RECONCILIATION SUMMARY ---
Patient: DREW NEVILLE Medication Reconciliation Report [facility] VisitID: [id number] [address] [place] [address] 71y, M Registration Date/Time: 01/21/2017 Weight: 122.4 kg Height/Length: 74 in. BMI: 34.7 ALLERGIES: Ciprofloxacin, Sulfamethoxazole The patient's Home Medications are listed below: THE FOLLOWING MEDICATIONS NEED TO BE RECONCILED: Aspirin Oral (81 mg) 1 tablet, daily Metoprolol Succinate ER Oral 25 mg, daily, take one tablet daily Triamterene-HCTZ Oral (37.5-25 mg) 1 tablet, daily The source(s) of the original Home Medication information: patient The following Medications were given to the patient in the Emergency Department: IV NS IV Fluids bolus 0, then 500 mL/hr, administered: 01/21/2017 1:11:00 AM Meclizine [PO] PO 50 mg, administered: 01/21/2017 1:39:00 AM Zofran ODT [PO] PO 4 mg, administered: 01/21/2017 1:39:00 AM The following Medications were prescribed to the patient: Antivert 25mg: Take 1 tablet orally every 8 hours as needed for dizziness. Dispense thirty (30). No refills. Substitution is permissible. -- Az Bentley DO
--- NOTE | 2017-01-21 10:46 | ED MAR SUMMARY ---
..... Medication Administration Record [facility] [address] [place] [address] Patient: DREW NEVILLE Visit ID: [id number] 71y, M Weight: 122.4 kg Height/Length: 74 in BMI: 34.7 ALLERGIES: Sulfamethoxazole, Ciprofloxacin Start 01:11 01/21/2017 Amrit Wang R.N., Stop 02:59 01/21/2017 Damien Reza R.N. Medication Administered: IV NS (SALINE), Dose: IV Fluids, Rate: 500 mL/hr, Dispensed: 500 mL bag, Site: #1 right wrist. Medication Ordered: IV NS : initial bolus 500 mL (1000 mL/hr), then 250 mL/hr for X2 (NOW). Given 01:39 01/21/2017 Damien Reza R.N. Medication Administered: MECLIZINE [PO], Dose: 50 mg Tablets PO. Medication Ordered: Meclizine PO 50 mg (NOW). Given 01:39 01/21/2017 Damien Reza R.NPascual Medication Administered: ZOFRAN ODT [PO] (ONDANSETRON), Dose: 4 mg Oral Disintegrating Tablets PO. Medication Ordered: Zofran ODT PO 4 mg (NOW).
--- NOTE | 2017-01-21 10:46 | ED DISCHARGE INSTRUCTIONS ---
Patient: DREW NEVILLE General Instructions [facility] VisitID: [id number] [address] [place] [address] 71y, M Registration Date/Time: 01/21/2017 Acute vertigo of peripheral origin: labrynthitis. Acute viral rhinitis. Acquired hypothyroidism. Frequent PVC's with bigeminy. INSTRUCTIONS Drink plenty of fluids. Warnings: Further evaluation is necessary in order to recheck abnormal lab, obtain test results, conduct further tests and assess the possibility of serious illness. It is very important to follow up with a physician. SEDATIVE MEDICATION: You were given sedative medication during your visit. Do not drive or operate dangerous machinery. GENERAL WARNINGS: Return or contact your physician immediately if your condition worsens or changes unexpectedly, if not improving as expected, or if other problems arise. Prescription Medications: Antivert 25mg: Take 1 tablet orally every 8 hours as needed for dizziness. Dispense thirty (30). No refills. Substitution is permissible. Follow-up with: Mk Faria MD, [facility], , [address] [id number] Follow up tomorrow. ADDITIONAL INFORMATION Vertigo [Unknown Cause] The "inner ear" is located behind the middle ear. It is part of the balance center of your body. Disease of the inner ear causes vertigo -- a false feeling of motion. It feels as if you or the room is spinning. A vertigo attack may cause sudden nausea, vomiting and heavy sweating. Severe vertigo causes a loss of balance and can cause you to fall. During vertigo, small head movements and changes in body position will often make the symptoms worse. The causes of vertigo include: Inflammation of the inner ear Disease of the nerves to the inner ear Movement of calcium particles in the inner ear Poor blood flow to the balance centers of the brain An episode of vertigo may last seconds, minutes or hours. Once you are over the first episode, it may never return. However, sometimes symptoms may recur off and on over several weeks or longer, depending on the cause. There may be ringing in the ears or hearing loss, which may be temporary or permanent. Home Care: If symptoms are severe, rest quietly in bed. Change positions very slowly. There is usually one position that will feel best, such as lying on one side or lying on your back with your head slightly raised on pillows. Do not drive or work with dangerous machinery for one week after symptoms go away, in case the symptoms suddenly return. Take medicine as prescribed to relieve your symptoms. Unless another medicine was prescribed for nausea, vomiting and vertigo, you may use bxav-aga-krglvyy motion sickness pills, such as meclizine (Bonine, Bonamine, Antivert) or dimenhydrinate (Dramamine). Follow Up with your doctor or as directed by our staff. Tell the doctor if your ears keep ringing, or if your hearing does not return to normal. Get Prompt Medical Attention if any of the following occur: Vertigo gets worse and is not controlled by medicine prescribed Repeated vomiting not relieved by medicine prescribed Increased weakness or fainting Severe headache or unusually drowsy or confused Weakness of an arm or leg or one side of the face Difficulty with speech or vision Labyrinthitis The "inner ear" is located behind the middle ear. It is part of the balance center of your body. When the inner ear becomes irritated or inflamed it causes an illness known as Labyrinthitis. It is most often due to a viral condition, but often a source is not found. Labyrinthitis causes sudden "vertigo" (a feeling that you or the room is spinning). There is a loss of balance when trying to walk, intense nausea and vomiting. Head movement from side to side, or changes in body position (from lying to sitting or standing) may worsen symptoms. An episode of vertigo may last seconds, minutes or hours. Once you are over the first episode of vertigo, it may never return. Sometimes symptoms recur off and on over several weeks or longer depending on the cause. Home Care: If symptoms are severe, rest quietly in bed. Change positions slowly. There is usually one position that will feel best, such as lying on one side or the other or lying on your back with your head slightly raised on pillows. Reduce your salt intake until you are symptom free for one month. Fluid retention caused by salt can make this condition worse. Do not drive or work with dangerous machinery for one week after symptoms disappear. Be cautious about using stairs. (In case of a sudden unexpected recurrence.) Take medicine as prescribed to relieve your symptoms. Unless another medicine was prescribed for nausea, vomiting and vertigo, you may use czry-hga-wlbgiby motion sickness pills, such as meclizine (Bonine, Bonamine, Antivert) or dimenhydrinate (Dramamine). All these medicines may cause drowsiness. Follow Up with your doctor or as advised by our staff. Get Prompt Medical Attention if any of the following occur: Worsening of vertigo, not controlled by medicine prescribed Repeated vomiting not relieved by medicine prescribed Increased weakness or fainting Headache or unusual drowsiness Difficulty with vision, speech or movement of the face, arms or legs Viral Respiratory Illness [Adult] You have an Upper Respiratory Illness (URI) caused by a virus. This illness is contagious during the first few days. It is spread through the air by coughing and sneezing or by direct contact (touching the sick person and then touching your own eyes, nose or mouth). Most viral illnesses go away within 7-10 days with rest and simple home remedies. Sometimes, the illness may last for several weeks. Antibiotics will not kill a virus and are generally not prescribed for this condition. Home Care: 1) If symptoms are severe, rest at home for the first 2-3 days. When you resume activity, don't let yourself get too tired. 2) Avoid being exposed to cigarette smoke (yours or others). 3) Tylenol (acetaminophen) or ibuprofen (Advil, Motrin) will help fever, muscle aching and headache. (Persons under 18 with fever should not take aspirin since this may cause liver damage.) 4) Your appetite may be poor, so a light diet is fine. Avoid dehydration by drinking 6-8 glasses of fluids per day (water, soft drinks, juices, tea, soup). Extra fluids will help loosen secretions in the nose and lungs. 5) Epwl-usl-eeddvvw cold medicines will not shorten the length of time youre sick, but they may be helpful for the following symptoms: cough (Robitussin DM); sore throat (Chloraseptic lozenges or spray); nasal and sinus congestion (Actifed, Sudafed, Chlortrimeton). Follow Up with your doctor or as advised if you dont improve over the next week. Get Prompt Medical Attention if any of the following occur: -- Cough with lots of colored sputum (mucus) or blood in your sputum -- Chest pain, shortness of breath, wheezing or have trouble breathing -- Severe headache; face, neck or ear pain -- Fever over 100.4 F (38.0 C) for more than three days -- You cant swallow due to throat pain Hypothyroidism You have been diagnosed with hypothyroidism. This means your thyroid gland is not producing enough thyroid hormone. This hormone is important to body growth and metabolism. If you don't have enough, many body processes slow down, causing mental and physical sluggishness. A variety of other symptoms may occur and vary from mild to severe. The most severe form of this illness is called myxedema. Signs Of Hyperthyroidism (too much thyroid hormone, which can be a side effect of treatment for low thyroid): Restlessness, nervousness Increased appetite with weight loss Excess sweating Palpitations or irregular heartbeat Feeling overheated Signs Of Hypothyroidism (too little thyroid hormone): Fatigue or sluggishness Difficulty concentrating or thinking clearly; forgetfulness Dry skin, hair loss Depression Unexpected weight gain Feeling cold, or cold hands and/or feet Home Care: Take your medicine exactly as directed at the same time every day. Don't take thyroid pills with soy milk since this interferes with absorption. After taking your thyroid medicine: Wait 4 hours before eating or drinking anything that contains soy. Wait 4 hours before taking iron supplements, antacids that contain either calcium or aluminum hydroxide, or calcium supplements (regular amounts of cows milk are probably okay). Do not stop treatment on your own. If you do, your symptoms will return. Eat a high-fiber, low-calorie diet to relieve constipation and maintain a healthy weight. Get regular exercise. Talk to your doctor about an exercise program that is right for you. Follow Up with your doctor or as advised by our staff. Your thyroid level will need to be monitored for the rest of your life. During your routine visits, tell your doctor about any symptoms such as the ones listed below. Get Prompt Medical Attention if any of the following occur: Extreme fatigue Puffy hands, face, or feet Chest pain or trouble breathing Palpitations or irregular heartbeat Confusion or loss of consciousness Meclizine Hydrochloride Oral tablet What is this medicine? MECLIZINE (EVE hollins) is an antihistamine. It is used to prevent nausea, vomiting, or dizziness caused by motion sickness. It is also used to prevent and treat vertigo (extreme dizziness or a feeling that you or your surroundings are tilting or spinning around). How should I use this medicine? Take this medicine by mouth with a glass of water. Follow the directions on the prescription label. If you are using this medicine to prevent motion sickness, take the dose at least 1 hour before travel. If it upsets your stomach, take it with food or milk. Take your doses at regular intervals. Do not take your medicine more often than directed. Talk to your pulverizer feeder regarding the use of this medicine in children. Special care may be needed. What side effects may I notice from receiving this medicine? Side effects that you should report to your doctor or health nurse behavioral health care as soon as possible: fainting spells fast or irregular heartbeat Side effects that usually do not require medical attention (report to your doctor or health nurse behavioral health care if they continue or are bothersome): constipation difficulty passing urine difficulty sleeping headache stomach upset What may interact with this medicine? barbiturate medicines for inducing sleep or treating seizures digoxin medicines for anxiety or sleeping problems, like alprazolam, diazepam or temazepam medicines for hay fever and other allergies medicines for mental depression medicines for movement abnormalities as in Parkinson's disease, or for stomach problems medicines for pain medicines that relax muscles What if I miss a dose? If you miss a dose, take it as soon as you can. If it is almost time for your next dose, take only that dose. Do not take double or extra doses. Where should I keep my medicine? Keep out of the reach of children. Store at room temperature between 15 and 30 degrees C (59 and 86 degrees F). Keep container tightly closed. Throw away any unused medicine after the expiration date. What should I tell my health care provider before I take this medicine? They need to know if you have any of these conditions: asthma glaucoma prostate trouble stomach problems urinary problems an unusual or allergic reaction to meclizine, other medicines, foods, dyes, or preservatives or trying to get breast-feeding What should I watch for while using this medicine? If you are taking this medicine on a regular schedule, visit your doctor or health nurse behavioral health care for regular checks on your progress. You may get dizzy, drowsy or have blurred vision. Do not drive, use machinery, or do anything that needs mental alertness until you know how this medicine affects you. Do not stand or sit up quickly, especially if you are an older patient. This reduces the risk of dizzy or fainting spells. Alcohol can increase possible dizziness. Avoid alcoholic drinks. Your mouth may get dry. Chewing sugarless gum or sucking hard candy, and drinking plenty of water may help. Contact your doctor if the problem does not go away or is severe. This medicine may cause dry eyes and blurred vision. If you wear contact lenses you may feel some discomfort. Lubricating drops may help. See your eye doctor if the problem does not go away or is severe. You have been given the following additional information: Vertigo, Unspecified Labyrinthitis Uri, Viral, No Abx (Adult) Hypothyroidism Meclizine Hydrochloride Oral tablet (Electronically signed by Az Bentley DO 01/21/2017 10:46)
== END 2017-01-21 03:00 | disposition home or self-care (01) ==
LOC: ED SRH 00:02
DX: H81.399 Other peripheral vertigo, unspecified ear (principal); I49.3 Ventricular premature depolarization; H83.09 Labyrinthitis, unspecified ear; E03.9 Hypothyroidism, unspecified; J00 Acute nasopharyngitis [common cold]; I10 Essential (primary) hypertension; Z79.82 Long term (current) use of aspirin; Z79.899 Other long term (current) drug therapy; Z88.1 Allergy status to other antibiotic agents
CPT/HCPCS: 90004; 90100; 90616; 91320; 91556; 92530; 92610; 92720; 93140; 94060; 95059